=== PATIENT | female | born 1960 | race Hispanic/Latino ===

== ENCOUNTER 2017-04-02 07:43 | Observation (INO) | payer SELFPAY ==
[~2017-04-02] VITALS: Ht 149.9 cm; Wt 118.6 kg
[~2017-04-02 07:43] MED LIST: AMOXICILLIN500 MG PO; CLEOCIN VAG2 % VA; CLINDAMYCIN2 % VA; DIFLUCAN150 MG OR; ZITHROMAX TRI-P1 TAB PO
[2017-04-02 08:41] LABS: HEMATOCRIT 44.4 % (37.0-47.0); HEMOGLOBIN 14.1 g/dl (12.0-16.0); IMMATURE GRANULOCYTES 0.5 % (0.0-1.0); MEAN CELL VOLUME 93.7 fL CALC (80.0-100.0); MEAN CORPUSCULAR HGB 29.7 pG CALC (26.0-32.0); MEAN CORPUSCULAR HGB CONC 31.8 g/L CALC (32.0-36.0); NEUT# 6.72 thou/uL (2.00-7.15); RED BLOOD COUNT 4.74 mill/uL (4.20-5.60); RED CELL DISTRI WIDTH 13.3 % (11.5-15.5)
[2017-04-02 08:49] LABS: PROTHROMBIN TIME 10.5 SECONDS (9.0-12.5)
[2017-04-02 08:51] LABS: ALBUMIN 4.8 g/dL (3.2-5.0); ALKALINE PHOSPHATASE 72 u/l (38-126); ANION GAP 16 (6-22 (CALC)); BILIRUBIN, TOTAL 0.7 mg/dL (0.0-1.4); BUN 18 mg/dL (7-17); BUN/CREATININE RATIO 29 (12-20 (CALC)); CALCIUM 9.3 mg/dL (8.4-10.2); CARBON DIOXIDE 25 mmol/l (22-30); CHLORIDE 104 mmol/l (95-108); CREATININE 0.6 mg/dL (0.5-1.0); GFR > 60 ML/MIN (>=60 (CALC)); GFR FOR AFR.AMER. > 60 ML/MIN (>=60 (CALC)); GLUCOSE 112 mg/dL (65-105); LIPASE 49 u/l (23-300); POTASSIUM 4.3 mmol/l (3.5-5.1); SGOT/AST 28 u/l (14-36); SGPT/ALT 31 u/l (9-52); SODIUM 141 mmol/l (137-146); TOTAL PROTEIN 8.5 g/dL (6.3-8.2)
[2017-04-02 09:03] LABS: MYOGLOBIN 31 ng/mL (0 - 62)
[2017-04-02] MEDS ORDERED: METFORMIN500 MG PO (10:23)
[2017-04-02] MEDS ORDERED: METFORMIN850 MG PO (10:24)
[2017-04-02] MEDS ORDERED: AMLODIPINE10 MG PO (10:24)
[2017-04-02] MEDS ORDERED: LOSARTAN POT50 MG PO (10:24)
[2017-04-02] MEDS ORDERED: ALL DAY ALLG10 M1 PO (10:25)
[2017-04-02 10:34] LABS: C. DIFFICILE TOXIN A&B NEGATIVE (NEGATIVE)
[2017-04-02 11:56] VITALS: BP 109/69
[2017-04-02 16:40] VITALS: BP 126/63
[2017-04-02 18:50] VITALS: BP 115/70
[2017-04-03 00:05] VITALS: BP 103/66
[2017-04-03 03:27] VITALS: BP 126/72
[2017-04-03 08:01] VITALS: BP 102/56
[2017-04-03 15:30] VITALS: BP 112/60
[2017-04-03 20:00] VITALS: BP 103/59
[2017-04-04 04:50] VITALS: BP 100/63
[2017-04-04 07:52] VITALS: BP 104/56
[2017-04-04 07:53] VITALS: BP 104/56
[2017-04-04] MEDS ORDERED: METRONIDAZOLE500 MG PO (10:24)
[2017-04-04] MEDS ORDERED: CIPROFLOXACIN500 M1 PO (10:24)
[2017-04-04] MEDS ORDERED: IMODIUM A-D2 MG PO (10:25)
== END 2017-04-04 14:20 | disposition home or self-care (01) | DRG 392 ==
LOC: ENPENDDIS → ED 07:43 → ED-I 10:07 → ED 10:56 → MS2 10:57
PROVIDERS: Emergency Medicine; ADMIT Internal Medicine; ATTEND Internal Medicine
DX: R19.7 Diarrhea, unspecified (principal); E66.01 Morbid (severe) obesity due to excess calories; I10 Essential (primary) hypertension; R10.32 Left lower quadrant pain; R10.13 Epigastric pain; R50.9 Fever, unspecified; R11.2 Nausea with vomiting, unspecified; E11.9 Type 2 diabetes mellitus without complications; M19.90 Unspecified osteoarthritis, unspecified site; Z79.84 Long term (current) use of oral hypoglycemic drugs
CPT/HCPCS: G0378

== ENCOUNTER 2019-06-05 12:29 | Emergency (ER) | payer OTHER ==
[~2019-06-05] VITALS: Ht 149.9 cm; Wt 96.0 kg
[~2019-06-05 12:29] MED LIST changes: +ALL DAY ALLG10 M1 PO; +AMLODIPINE10 MG PO; +CIPROFLOXACIN500 M1 PO; +IMODIUM A-D2 MG PO; +LOSARTAN POT50 MG PO; +METFORMIN500 MG PO; +METFORMIN850 MG PO; +METRONIDAZOLE500 MG PO
[2019-06-05] MEDS ORDERED: METFORMIN500 MG PO (13:25)
[2019-06-05] MEDS ORDERED: LOVASTATIN20 M1 PO (13:26)
[2019-06-05 13:35] LABS: HEMATOCRIT 39.6 % (37.0-47.0); HEMOGLOBIN 12.6 g/dl (12.0-16.0); IMMATURE GRANULOCYTES 0.1 % (0.0-5.0); MEAN CELL VOLUME 95.4 fL CALC (80.0-100.0); MEAN CORPUSCULAR HGB 30.4 pG CALC (26.0-32.0); MEAN CORPUSCULAR HGB CONC 31.8 g/L CALC (32.0-36.0); NEUT# 4.38 thou/uL (2.00-7.15); RED BLOOD COUNT 4.15 mill/uL (4.20-5.60)
[2019-06-05 13:39] LABS: URINE BILIRUBIN - DIPSTICK NEGATIVE (NEGATIVE); URINE BLOOD DIPSTICK NEGATIVE (NEGATIVE); URINE COLOR YELLOW; URINE GLUCOSE - DIPSTICK NEGATIVE (NEGATIVE); URINE KETONE NEGATIVE (NEGATIVE); URINE LEUK ESTERASE NEGATIVE (NEGATIVE); URINE NITRITE - DIPSTICK NEGATIVE (Negative); URINE PROTEIN - DIPSTICK NEGATIVE (NEG-TRACE); URINE UROBILINOGEN - DIPSTICK 0.2 E.U./dL (0.2)
[2019-06-05 13:46] LABS: BARBITURATES NEGATIVE (NEGATIVE); COCAINE NEGATIVE (NEGATIVE); METHADONE NEGATIVE (NEGATIVE); OXCYCODONE NEGATIVE (NEGATIVE); TETRAHYDROCANNABIONOL NEGATIVE (NEGATIVE); TRICYLIC ANTIDEPRESSANTS NEGATIVE (NEGATIVE)
[2019-06-05 13:49] LABS: ALKALINE PHOSPHATASE 107 u/l (38-126); ANION GAP 13 (6-22 (CALC)); BUN 22 mg/dL (7-17); BUN/CREATININE RATIO 31 (12-20 (CALC)); CARBON DIOXIDE 29 mmol/l (22-30); CHLORIDE 105 mmol/l (95-108); CREATININE 0.7 mg/dL (0.5-1.0); GFR > 60 ML/MIN (>=60 (CALC)); GFR FOR AFR.AMER. > 60 ML/MIN (>=60 (CALC)); LIPASE 88 u/l (23-300); POTASSIUM 4.1 mmol/l (3.5-5.1); SGOT/AST 15 u/l (14-36); SODIUM 142 mmol/l (137-146)
[2019-06-05 14:00] LABS: ALBUMIN 3.8 g/dL (3.2-5.0); BILIRUBIN, TOTAL 0.4 mg/dL (0.0-1.4); TOTAL PROTEIN 6.7 g/dL (6.3-8.2)
[2019-06-05] MEDS ORDERED: FLEXERIL PO (14:15)
[2019-06-05 15:07] VITALS: BP 116/58
== END 2019-06-05 15:07 | disposition home or self-care (01) ==
LOC: ED 12:29
DX: M54.41 Lumbago with sciatica, right side (principal); E11.9 Type 2 diabetes mellitus without complications; I10 Essential (primary) hypertension

== ENCOUNTER 2019-09-20 06:13 | Day surgery (SDC) | payer MEDICAID ==
[~2019-09-20] VITALS: Ht 149.9 cm; Wt 124.7 kg
[~2019-09-20 06:13] MED LIST changes: +FLEXERIL PO; +LOVASTATIN20 M1 PO
[2019-09-20 08:26] VITALS: BP 117/56
== END 2019-09-20 09:08 | disposition home or self-care (01) ==
LOC: ORM 06:13
PROVIDERS: ATTEND Anesthesiology Pain Medicine
DX: M12.9 Arthropathy, unspecified (principal); M54.5 Low back pain

== ENCOUNTER 2019-10-18 | Day surgery (SDC) | payer MEDICAID | END 2019-10-18 11:21 | disposition home or self-care (01) | DX: M54.5 Low back pain (principal) ==

== ENCOUNTER 2020-01-08 | Emergency (ER) | payer MEDICAID ==
[2020-01-08 18:39] LABS: HEMATOCRIT 43.9 % (37.0-47.0); HEMOGLOBIN 13.7 g/dl (12.0-16.0); IMMATURE GRANULOCYTES 0.3 % (0.0-5.0); MEAN CORPUSCULAR HGB 29.3 pG CALC (26.0-32.0); MEAN CORPUSCULAR HGB CONC 31.2 g/L CALC (32.0-36.0); NEUT# 4.54 thou/uL (2.00-7.15); RED BLOOD COUNT 4.67 mill/uL (4.20-5.60); RED CELL DISTRI WIDTH 12.9 % (11.5-15.5)
[2020-01-08 19:07] LABS: ALBUMIN 4.1 g/dL (3.2-5.0); ALKALINE PHOSPHATASE 63 u/l (38-126); ANION GAP 11 (6-22 (CALC)); BUN 20 mg/dL (7-17); BUN/CREATININE RATIO 41 (12-20 (CALC)); CARBON DIOXIDE 29 mmol/l (22-30); CHLORIDE 103 mmol/l (95-108); CREATININE 0.5 mg/dL (0.5-1.0); GFR > 60 ML/MIN (>=60 (CALC)); GFR FOR AFR.AMER. > 60 ML/MIN (>=60 (CALC)); LIPASE 48 u/l (23-300); POTASSIUM 4.6 mmol/l (3.5-5.1); SGOT/AST 23 u/l (14-36); SODIUM 139 mmol/l (137-146); TOTAL PROTEIN 7.1 g/dL (6.3-8.2)
[2020-01-08 19:10] LABS: BILIRUBIN, TOTAL 0.8 mg/dL (0.0-1.4)
[2020-01-08 20:34] LABS: URINE BILIRUBIN - DIPSTICK NEGATIVE (NEGATIVE); URINE BLOOD DIPSTICK NEGATIVE (NEGATIVE); URINE COLOR YELLOW; URINE GLUCOSE - DIPSTICK NEGATIVE (NEGATIVE); URINE KETONE NEGATIVE (NEGATIVE); URINE LEUK ESTERASE NEGATIVE (NEGATIVE); URINE NITRITE - DIPSTICK NEGATIVE (Negative); URINE PH 7.5 (4.5-8.0); URINE PROTEIN - DIPSTICK NEGATIVE (NEG-TRACE); URINE UROBILINOGEN - DIPSTICK 0.2 E.U./dL (0.2)
[2020-01-08] MEDS ORDERED: ZOFRAN4 MG/TAB PO (21:00)
[2020-01-08] MEDS ORDERED: PEPCID20 MG PO (21:00)
== END 2020-01-08 21:15 | disposition home or self-care (01) ==
PROVIDERS: Family Medicine
DX: K21.9 Gastro-esophageal reflux disease without esophagitis (principal); E11.9 Type 2 diabetes mellitus without complications; I10 Essential (primary) hypertension; Z79.84 Long term (current) use of oral hypoglycemic drugs

== ENCOUNTER 2020-01-13 | Emergency (ER) | payer MEDICAID ==
[~2020-01-13] MED LIST changes: +PEPCID20 MG PO; +ZOFRAN4 MG/TAB PO
[2020-01-13 19:47] LABS: URINE BILIRUBIN - DIPSTICK NEGATIVE (NEGATIVE); URINE BLOOD DIPSTICK NEGATIVE (NEGATIVE); URINE COLOR YELLOW; URINE GLUCOSE - DIPSTICK NEGATIVE (NEGATIVE); URINE KETONE TRACE mg/dL (NEGATIVE); URINE LEUK ESTERASE NEGATIVE (NEGATIVE); URINE NITRITE - DIPSTICK NEGATIVE (Negative); URINE PH 5.5 (4.5-8.0); URINE PROTEIN - DIPSTICK NEGATIVE (NEG-TRACE); URINE SPECIFIC GRAVITY 1.025; URINE UROBILINOGEN - DIPSTICK 0.2 E.U./dL (0.2)
[2020-01-13] MEDS ORDERED: DICYCLOMINE10 MG PO (19:48)
[2020-01-13] MEDS ORDERED: CARAFATE1 GM/10 M1 PO (19:49)
[2020-01-13 19:50] LABS: HEMATOCRIT 43.9 % (37.0-47.0); IMMATURE GRANULOCYTES 0.6 % (0.0-5.0); MEAN CELL VOLUME 94.4 fL CALC (80.0-100.0); MEAN CORPUSCULAR HGB 30.1 pG CALC (26.0-32.0); MEAN CORPUSCULAR HGB CONC 31.9 g/L CALC (32.0-36.0); NEUT# 4.46 thou/uL (2.00-7.15); RED BLOOD COUNT 4.65 mill/uL (4.20-5.60); RED CELL DISTRI WIDTH 13.1 % (11.5-15.5)
[2020-01-13] MEDS ORDERED: CVS ESOMEPRAZOL20 MG PO (19:50)
[2020-01-13 20:09] LABS: ALBUMIN 4.5 g/dL (3.2-5.0); ALKALINE PHOSPHATASE 66 u/l (38-126); ANION GAP 14 (6-22 (CALC)); BILIRUBIN, TOTAL 0.5 mg/dL (0.0-1.4); BUN 18 mg/dL (7-17); BUN/CREATININE RATIO 29 (12-20 (CALC)); CARBON DIOXIDE 26 mmol/l (22-30); CHLORIDE 105 mmol/l (95-108); CREATININE 0.6 mg/dL (0.5-1.0); GFR > 60 ML/MIN (>=60 (CALC)); GFR FOR AFR.AMER. > 60 ML/MIN (>=60 (CALC)); LIPASE 82 u/l (23-300); POTASSIUM 4.6 mmol/l (3.5-5.1); SGOT/AST 24 u/l (14-36); SODIUM 140 mmol/l (137-146); TOTAL PROTEIN 7.5 g/dL (6.3-8.2)
[2020-01-13] MEDS ORDERED: LEVSIN0.125 M1 PO (21:58)
== END 2020-01-13 22:11 | disposition home or self-care (01) ==
DX: K21.9 Gastro-esophageal reflux disease without esophagitis (principal); E11.9 Type 2 diabetes mellitus without complications; I10 Essential (primary) hypertension
CPT/HCPCS: Q9967

== ENCOUNTER 2021-11-27 00:35 | Emergency (ER) | payer OTHER ==
[~2021-11-27] VITALS: Ht 152.4 cm; Wt 118.0 kg
[~2021-11-27 00:35] MED LIST changes: +CARAFATE1 GM/10 M1 PO; +CVS ESOMEPRAZOL20 MG PO; +DICYCLOMINE10 MG PO; +LEVSIN0.125 M1 PO
[2021-11-27] MEDS ORDERED: ULTRAM50 MG PO (02:00)
[2021-11-27] MEDS ORDERED: FLEXERIL5 M1 PO (02:00)
[2021-11-27 03:26] LABS: HEMATOCRIT 45.8 % (37.0-47.0); HEMOGLOBIN 14.4 g/dl (12.0-16.0); IMMATURE GRANULOCYTES 0.4 % (0.0-5.0); MEAN CELL VOLUME 95.8 fL CALC (80.0-100.0); MEAN CORPUSCULAR HGB 30.1 pG CALC (26.0-32.0); MEAN CORPUSCULAR HGB CONC 31.4 g/dL CAL (32.0-36.0); NEUT# 1.73 thou/uL (2.00-7.15); RED BLOOD COUNT 4.78 mill/uL (4.20-5.60); RED CELL DISTRI WIDTH 12.6 % (11.5-15.5)
[2021-11-27 03:38] LABS: ALKALINE PHOSPHATASE 88 u/l (38-126); AMYLASE 49 u/l (30-110); ANION GAP 9 (6-22 (CALC)); BILIRUBIN, TOTAL 0.6 mg/dL (0.0-1.4); BUN 15 mg/dL (7-17); BUN/CREATININE RATIO 24 (12-20 (CALC)); CARBON DIOXIDE 29 mmol/l (22-30); CHLORIDE 106 mmol/l (95-108); CREATININE 0.6 mg/dL (0.5-1.0); GFR > 60 ML/MIN (>=60 (CALC)); GFR FOR AFR.AMER. > 60 ML/MIN (>=60 (CALC)); LIPASE 78 u/l (23-300); POTASSIUM 4.1 mmol/l (3.5-5.1); SGOT/AST 22 u/l (14-36); SODIUM 140 mmol/l (137-146); TOTAL PROTEIN 7.5 g/dL (6.3-8.2)
[2021-11-27] MEDS ORDERED: ZPAK PO (04:16)
[2021-11-27] MEDS ORDERED: ZOFRAN4 MG/TAB PO (04:16)
[2021-11-27 04:46] VITALS: BP 158/73
== END 2021-11-27 04:54 | disposition home or self-care (01) ==
LOC: ED 00:35
DX: S39.012A Strain of muscle, fascia and tendon of lower back, initial encounter (principal); R07.2 Precordial pain; R91.8 Other nonspecific abnormal finding of lung field; E11.9 Type 2 diabetes mellitus without complications; I10 Essential (primary) hypertension; K44.9 Diaphragmatic hernia without obstruction or gangrene; K21.9 Gastro-esophageal reflux disease without esophagitis; X58.XXXA Exposure to other specified factors, initial encounter
CPT/HCPCS: S0164

== ENCOUNTER 2021-11-29 11:46 | Emergency (ER) | payer OTHER ==
[~2021-11-29] VITALS: Ht 152.4 cm; Wt 118.0 kg
[~2021-11-29 11:46] MED LIST changes: +FLEXERIL5 M1 PO; +ULTRAM50 MG PO; +ZPAK PO
[2021-11-29] MEDS ORDERED: HYDROCO/APAP1 TA9 PO (13:59)
[2021-11-29 14:00] VITALS: BP 151/67
== END 2021-11-29 14:00 | disposition home or self-care (01) ==
LOC: ED 11:46
DX: S39.012A Strain of muscle, fascia and tendon of lower back, initial encounter (principal); S70.01XA Contusion of right hip, initial encounter; S30.0XXA Contusion of lower back and pelvis, initial encounter; I10 Essential (primary) hypertension; E11.9 Type 2 diabetes mellitus without complications; W19.XXXA Unspecified fall, initial encounter; Y93.E9 Activity, other interior property and clothing maintenance; Y92.009 Unspecified place in unspecified non-institutional (private) residence as the place of occurrence of the external cause

== ENCOUNTER 2022-09-10 23:17 | Emergency (ER) | payer OTHER ==
[~2022-09-10] VITALS: Ht 152.4 cm; Wt 98.6 kg
[~2022-09-10 23:17] MED LIST changes: +HYDROCO/APAP1 TA9 PO
[2022-09-10 23:29] VITALS: BP 150/74
[2022-09-10 23:32] VITALS: BP 162/60
[2022-09-10 23:46] LABS: HEMATOCRIT 44.8 % (37.0-47.0); HEMOGLOBIN 14.3 g/dl (12.0-16.0); IMMATURE GRANULOCYTES 0.2 % (0.0-5.0); MEAN CELL VOLUME 94.1 fL CALC (80.0-100.0); MEAN CORPUSCULAR HGB CONC 31.9 g/dL CAL (32.0-36.0); NEUT# 2.48 thou/uL (2.00-7.15); RED BLOOD COUNT 4.76 mill/uL (4.20-5.60)
[2022-09-11] LABS: ALBUMIN 4.4 g/dL (3.2-5.0); ALKALINE PHOSPHATASE 81 u/l (38-126); ANION GAP 13 (6-22 (CALC)); BILIRUBIN, TOTAL 0.6 mg/dL (0.0-1.4); BUN 18 mg/dL (7-17); BUN/CREATININE RATIO 26 (12-20 (CALC)); CARBON DIOXIDE 24 mmol/l (22-30); CHLORIDE 109 mmol/l (95-108); CREATININE 0.7 mg/dL (0.5-1.0); GFR FOR AFR.AMER. > 60 ML/MIN (>=60 (CALC)); GFR OTHER RACES > 60 ML/MIN (>=60 (CALC)); LIPASE 51 u/l (23-300); POTASSIUM 4.3 mmol/l (3.5-5.1); SGOT/AST 34 u/l (14-36); SODIUM 141 mmol/l (137-146); TOTAL PROTEIN 7.4 g/dL (6.3-8.2)
[2022-09-11 00:07] VITALS: BP 148/81
[2022-09-11 00:16] VITALS: BP 154/75
[2022-09-11 00:17] LABS: URINE BILIRUBIN - DIPSTICK SMALL (NEGATIVE); URINE BLOOD DIPSTICK LARGE (NEGATIVE); URINE COLOR YELLOW; URINE GLUCOSE - DIPSTICK NEGATIVE (NEGATIVE); URINE KETONE 15 mg/dL (NEGATIVE); URINE LEUK ESTERASE NEGATIVE (NEGATIVE); URINE PH 5.5 (4.5-8.0); URINE PROTEIN - DIPSTICK 30 mg/dL (NEG-TRACE); URINE SPECIFIC GRAVITY >=1.030; URINE UROBILINOGEN - DIPSTICK 0.2 E.U./dL (0.2)
[2022-09-11 00:18] LABS: URINE NITRITE - DIPSTICK NEGATIVE (Negative); URINE RBC 50-100 RBC/hpf (0-5); URINE SQUAMOUS EPITHELIAL CELL MANY EPI/hpf (0-FEW); URINE WBC 0-2 WBC/hpf (0-5)
[2022-09-11 00:19] LABS: URINE CALCIUM OXALATE CRYSTALS MODERATE lpf
[2022-09-11] MEDS ORDERED: TAMSULOSIN0.4 MG PO (01:53)
[2022-09-11] MEDS ORDERED: TRAMADOL HCL50 MG PO (01:53)
[2022-09-11 01:58] VITALS: BP 154/75
== END 2022-09-11 02:18 | disposition home or self-care (01) ==
LOC: ED 23:17
PROVIDERS: Family Medicine
DX: N13.2 Hydronephrosis with renal and ureteral calculous obstruction (principal); I10 Essential (primary) hypertension; E11.9 Type 2 diabetes mellitus without complications; Z98.84 Bariatric surgery status
CPT/HCPCS: J0131; S0164

== ENCOUNTER → 2022-09-21 | Emergency (ER) | payer OTHER ==
[~2022-09-21] VITALS: Ht 152.4 cm; Wt 75.0 kg
[2022-09-21] VITALS (11 sets, daily range): BP systolic 125–162; BP diastolic 78–117
[~2022-09-21] MED LIST changes: +TAMSULOSIN0.4 MG PO; +TRAMADOL HCL50 MG PO
[2022-09-21 09:50] LABS: URINE BILIRUBIN - DIPSTICK NEGATIVE (NEGATIVE); URINE BLOOD DIPSTICK LARGE (NEGATIVE); URINE COLOR YELLOW; URINE GLUCOSE - DIPSTICK NEGATIVE (NEGATIVE); URINE KETONE NEGATIVE (NEGATIVE); URINE LEUK ESTERASE NEGATIVE (NEGATIVE); URINE SPECIFIC GRAVITY >=1.030; URINE UROBILINOGEN - DIPSTICK 0.2 E.U./dL (0.2)
[2022-09-21 09:51] LABS: URINE NITRITE - DIPSTICK NEGATIVE (Negative)
[2022-09-21 10:00] LABS: URINE BACTERIA FEW hpf; URINE CALCIUM OXALATE CRYSTALS FEW lpf; URINE PROTEIN - DIPSTICK NEGATIVE (NEG-TRACE); URINE SQUAMOUS EPITHELIAL CELL MANY EPI/hpf (0-FEW)
[2022-09-21 10:04] LABS: HEMATOCRIT 43.5 % (37.0-47.0); HEMOGLOBIN 14.3 g/dl (12.0-16.0); MEAN CELL VOLUME 93.3 fL CALC (80.0-100.0); MEAN CORPUSCULAR HGB 30.7 pG CALC (26.0-32.0); MEAN CORPUSCULAR HGB CONC 32.9 g/dL CAL (32.0-36.0); NEUT# 4.75 thou/uL (2.00-7.15); RED BLOOD COUNT 4.66 mill/uL (4.20-5.60)
[2022-09-21 10:27] LABS: ALKALINE PHOSPHATASE 74 u/l (38-126); ANION GAP 12 (6-22 (CALC)); BILIRUBIN, TOTAL 0.8 mg/dL (0.0-1.4); BUN 14 mg/dL (7-17); BUN/CREATININE RATIO 18 (12-20 (CALC)); CARBON DIOXIDE 24 mmol/l (22-30); CHLORIDE 110 mmol/l (95-108); CREATININE 0.8 mg/dL (0.5-1.0); GFR FOR AFR.AMER. > 60 ML/MIN (>=60 (CALC)); GFR OTHER RACES > 60 ML/MIN (>=60 (CALC)); LIPASE 26 u/l (23-300); POTASSIUM 3.7 mmol/l (3.5-5.1); SGOT/AST 34 u/l (14-36); SODIUM 142 mmol/l (137-146); TOTAL PROTEIN 7.2 g/dL (6.3-8.2)
== END | disposition home or self-care (01) ==
LOC: ED 09:12
PROVIDERS: Family Medicine
DX: N13.2 Hydronephrosis with renal and ureteral calculous obstruction (principal); E11.9 Type 2 diabetes mellitus without complications; I10 Essential (primary) hypertension
CPT/HCPCS: Q9967

== ENCOUNTER 2023-01-19 07:03 | Emergency (ER) | payer OTHER ==
[~2023-01-19] VITALS: Ht 152.4 cm; Wt 99.8 kg
[2023-01-19] MEDS ORDERED: TAM75CAP PO (08:48)
[2023-01-19] MEDS ORDERED: TRAMADOL HYDROC50 M1 PO (08:48)
[2023-01-19 09:05] VITALS: BP 153/69
== END 2023-01-19 09:16 | disposition home or self-care (01) ==
LOC: ED 07:03
DX: J11.1 Influenza due to unidentified influenza virus with other respiratory manifestations (principal); I10 Essential (primary) hypertension; E11.9 Type 2 diabetes mellitus without complications; Z20.822 Contact with and (suspected) exposure to COVID-19